=== PATIENT | male | born 1960 | race Caucasian/White ===

== ENCOUNTER 2017-11-25 08:03 | Inpatient (IN) | payer OTHER ==
[2017-11-22 13:36] VITALS: BMI 22.9
[2017-11-25] MEDS ORDERED: CEFAZOLIN/Water 2 GM/20 ML SYRINGE ONE (08:38)
[2017-11-25 09:01] LABS: Hemoglobin 16.1 g/dL (14.0-18.0); Mean Corpuscular HGB CONC 34.2 g/dL (32.0-36.0); Mean Corpuscular Hemoglobin 30.6 pg (27.0-31.0); Mean Corpuscular Volume 89.6 fL (78.0-98.0); Mean Platelet Volume 7.9 fL (7.4-10.4); Platelet Count 206 thou/uL (130-400); RBC Distribution Width 11.8 % (11.5-14.5); Red Blood Cell (RBC) Count 5.24 mill/uL (4.70-6.10); White Blood Cell (WBC) Count 7.1 thou/uL (4.8-10.8)
[2017-11-25 09:52] LABS: Anion Gap 11 mmol/L (10-20); BUN (Urea Nitrogen) 10 mg/dL (8.4-25.7); Calc. Creatinine Clearance 94 mL/min (70-130); Calcium 9.6 mg/dL (7.8-10.44); Carbon Dioxide 27 mmol/L (22-29); Chloride 106 mmol/L (98-107); Estimated GFR-MDRD 90; Glucose 83 mg/dL (70-105); Potassium 3.8 mmol/L (3.5-5.1); Sodium 140 mmol/L (136-145)
[2017-11-25] MEDS ORDERED: Sodium Chloride 0.9% 10 ML ONE (10:48)
[2017-11-25] MEDS ORDERED: Promethazine HCl 25 MG/ML VIAL ONE ×2 (12:27→15:37)
[2017-11-25] MEDS ORDERED: Fentanyl 100 MCG/2 ML VIAL ONE ×3 (12:27→16:22)
[2017-11-25] MEDS ORDERED: Bacitracin Zinc Ointment 30 gm TUBE ONE (13:11)
[2017-11-25] MEDS ORDERED: Dexamethasone 20 MG/5 ML VIAL ONE (13:44)
[2017-11-25] MEDS ORDERED: Lidocaine 1% PF 5 ML VIAL ONE (13:44)
[2017-11-25] MEDS ORDERED: ePHEDrine/0.9% NaCl/PF SYRINGE 50 mg/10 ml ONE (13:44)
[2017-11-25] MEDS ORDERED: PROPOFOL 200 MG/20 ML VIAL ONE (13:44)
[2017-11-25] MEDS ORDERED: Glycopyrrolate 0.2 MG/ML 5 ML SYRINGE ONE (13:44)
[2017-11-25] MEDS ORDERED: Ondansetron HCl/PF 4 MG/2 ML Vial ONE (13:44)
[2017-11-25] MEDS ORDERED: PHENYLEPHRINE-NS 100 MCG/ML 10 ML SYRINGE ONE (13:44)
[2017-11-25] MEDS ORDERED: SUGAMMADEX SODIUM 200 MG/2 ML VIAL ONE (14:44)
[2017-11-25] MEDS ORDERED: HYDROmorphone 2 MG/ML VIAL SLOW IVP PRN (15:03)
[2017-11-25] MEDS ORDERED: Morphine Sulfate 2 MG/ML SYRINGE SLOW IVP PRN (15:03)
[2017-11-25] MEDS ORDERED: Ondansetron HCl/PF 4 MG/2 ML Vial IVP PRN ×2 (15:03→15:26)
[2017-11-25] MEDS ORDERED: Promethazine HCl 25 MG/ML VIAL SLOW IVP PRN (15:03)
[2017-11-25] MEDS ORDERED: diphenhydrAMINE 50 MG/ML VIAL IVP PRN (15:26)
[2017-11-25] MEDS ORDERED: Milk Of Magnesia 30 ML UDCUP PO PRN (15:26)
[2017-11-25] MEDS ORDERED: Promethazine HCl 12.5 MG SUPP PR PRN (15:26)
[2017-11-25] MEDS ORDERED: Promethazine HCl 25 MG/ML VIAL IM PRN (15:26)
[2017-11-25] MEDS ORDERED: Morphine 4 MG/ML Carpuject SLOW IVP PRN (15:26)
[2017-11-25] MEDS ORDERED: Promethazine 25 MG TAB PO PRN (15:26)
[2017-11-25] MEDS ORDERED: diphenhydrAMINE 25 MG CAP PO PRN (15:26)
[2017-11-25] MEDS ORDERED: Mag-Al 1200 mg/1200 mg/30 ML UDCUP PO PRN (15:26)
[2017-11-25] MEDS ORDERED: traMADol HCl 50 MG TAB PO PRN ×2 (15:26)
[2017-11-25] MEDS ORDERED: HYDROcodone/Acetaminophen 10/325 mg Tablet PO PRN (15:26)
[2017-11-25] MEDS ORDERED: tiZANidine HCl 4 MG TAB PO PRN (15:26)
[2017-11-25] MEDS ORDERED: HYDROmorphone 0.5 MG/0.5 ML SYRINGE ONE ×2 (15:37→16:14)
[2017-11-25] MEDS: Sodium Chloride 0.9% 1,000 ML IV SCH ×2 (17:52→18:10)
[2017-11-25] MEDS: CEFAZOLIN/Water 2 GM/20 ML SYRINGE SLOW IVP SCH (18:10)
[2017-11-25] MEDS ORDERED: OLANZapine 5 MG TAB PO SCH (21:00)
[2017-11-25] MEDS ORDERED: Prazosin HCl 1 MG CAP PO SCH (21:00)
[2017-11-25] MEDS: Gabapentin 100 MG CAP PO SCH (21:28)
--- NOTE | 2017-11-25 22:12 | OP ---
DATE OF PROCEDURE: 11/25/2017 SURGEON: Vivek Suárez M.D. MANAGER HEART: Noel Ambriz PROCEDURE: Anterior cervical discectomy C4-5 and C5-6, interbody arthrodesis, intravertebral biomech anical device, local morselized autograft, demineralized bone matrix, anterior titanium instrumentati on C4-C6, posterior approach C4-C6 laminectomies, posterolateral arthrodesis, lateral mass screws, de mineralized bone matrix, local morselized autograft C4-C6. PROCEDURE IN DETAIL: The patient was brought to the operating room intubated and positioned supine w ith head in modest extension on a gel-filled donut. Incision was made in the right precervical area and dissecting medial to the sternocleidomastoid muscle, identified the anterior cervical spine and o ur level was confirmed by x-ray. We debrided anterior osteophytes, placed distraction across the dis k spaces, and using the operating microscope and microdissection techniques, completely decompressed the intravertebral disks at C4-5 and C5-6. Next, the bony endplates were decorticated for the purpos e of arthrodesis and appropriately-sized intravertebral biomechanical PEEK device was brought into th e field, filled with demineralized bone matrix and local morselized autograft, and tapped into place securely at C4-5 and C5-6. Next, an anterior plate was brought into the field and secured to C4, C5, and C6 using two 14 mm screws at each level. The wound was then extensively irrigated. Immaculate hemostasis was secured. The wound was closed in anatomic layers over a drain. The patient was then rolled in the prone position on gel-filled chest rolls with the head fixed in neutral position. A mi dline incision was made exposing C4 through C6 and our level was confirmed by x-ray. We performed co mplete C6, complete C5, and inferior C4 laminectomies, completely decompressing the spinal cord at th norma levels. Lateral mass screws were then placed at right C4, right C5, right C6, secured by a thao, which was connected by nuts, which were final tightened. The wound was then extensively irrigated. Immaculate hemostasis was secured. Vancomycin powder was applied and the wound was closed in anatomi c layers.
[2017-11-26] MEDS: HYDROcodone/Acetaminophen 10/325 mg Tablet PO PRN ×3 (00:27→09:05)
[2017-11-26] MEDS: CEFAZOLIN/Water 2 GM/20 ML SYRINGE SLOW IVP SCH (01:22)
[2017-11-26] MEDS: Cepastat Lozenges 1 LOZ PO PRN ×3 (01:22→09:00)
[2017-11-26] MEDS: Sodium Chloride 0.9% 1,000 ML IV SCH (08:57)
[2017-11-26] MEDS: Gabapentin 100 MG CAP PO SCH ×2 (09:00→09:03)
[2017-11-26] MEDS: lamoTRIgine 100 MG TAB PO SCH ×2 (09:00→09:03)
[2017-11-26 11:14] VITALS: BP 119/73; TEMP 98.4
== END 2017-11-26 12:41 | disposition home or self-care (01) | DRG 473 ==
LOC: EDSEX → SURG A 08:03 → SJJU 16:56
PROVIDERS: ADMIT Neurological Surgery; ATTEND Neurological Surgery
PROC: 0RG20A0 Fusion of 2 or more Cervical Vertebral Joints with Interbody Fusion Device, Anterior Approach, Anterior Column, Open Approach (ICD-10-PCS; principal; 2017-11-25)
PROC: 0RG20K0 Fusion of 2 or more Cervical Vertebral Joints with Nonautologous Tissue Substitute, Anterior Approach, Anterior Column, Open Approach (ICD-10-PCS; 2017-11-25)
DX: M47.12 Other spondylosis with myelopathy, cervical region (principal)
CPT/HCPCS: 76001; 80048; 85027; 93005; 93010; A4216; C1713; C1768; C1776; J1100; J1170; J2001; J2270; J2405; J2550; J2704; J3010; J3370; J3490

== ENCOUNTER 2018-02-11 13:40 | Outpatient (CLI) | payer OTHER ==
--- NOTE | 2018-02-11 15:33 | RAD ---
CERVICAL SPINE THREE VIEWS: History: Neck surgery. FINDINGS: Anterior operative fixation at the C4-5-6 levels without perihardware lucency. Posterior fixation on the right at the C4-5-6 levels. Disc space narrowing is greatest at the C3-4 level with minimal degen erative retrolisthesis. Vertebral body heights are maintained. No aggressive osseous erosions. IMPRESSION: Degenerative changes and operative fixation of the cervical spine. No evidence of hardware complicati on. POS: [facility]
== END 2018-02-11 13:41 | disposition home or self-care (01) ==
LOC: TBSIIMAG 13:40
PROVIDERS: ATTEND Neurological Surgery
DX: M54.2 Cervicalgia (principal); M47.892 Other spondylosis, cervical region; Z98.890 Other specified postprocedural states
CPT/HCPCS: 72040

== ENCOUNTER 2018-05-14 12:56 | Outpatient (CLI) | payer OTHER ==
--- NOTE | 2018-05-14 15:17 | RAD ---
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 COMPARISON: Radiographs dated 02/11/18. FINDINGS: ACDF hardware C4-C6 intact without hardware complication. There is unilateral right-sided posterior spinal fusion at this level with the C5 screw appearing to extend into the facet joint. IMPRESSION: Right C5 pedicle screw appears to extend into the C5-C6 facet joint. POS: [facility]
== END 2018-05-14 12:57 | disposition home or self-care (01) ==
LOC: TBSIIMAG 12:56
PROVIDERS: ATTEND Neurological Surgery
DX: M47.12 Other spondylosis with myelopathy, cervical region (principal)
CPT/HCPCS: 72040